=== PATIENT | male | born 1980 | race Caucasian/White ===

== ENCOUNTER → 2017-01-20 | Outpatient (CLI) | payer OTHER ==
--- NOTE | 2017-01-21 15:17 | RAD ---
Exam performed: 2 views right wrist and 2 views left knee. History: Disability determination. Date of service: 01/20/17. Comparison: None available 2 views right wrist findings: AP and lateral view of the right breast are obtained. Normal alignment is preserved. There is no acute fracture or dislocation. There is mild soft tissue swelling. No foreign body. Impression: No acute bony abnormality seen in the right breast. End impression. 2 views left knee findings: AP and lateral view of the left knee are obtained. Normal alignment is preserved. There is no acute fracture or dislocation. No soft tissue swelling or foreign body seen. Impression: Negative exam. [facility]
== END | disposition home or self-care (01) ==
LOC: RAD 09:06
PROVIDERS: ATTEND Surgery
DX: M25.531 Pain in right wrist (principal); M25.562 Pain in left knee
CPT/HCPCS: 73100; 73560